=== PATIENT | male | born 1980 | race Caucasian/White ===

== ENCOUNTER 2019-09-23 14:03 | Emergency (ER) | payer BC ==
[2019-09-23] MEDS ORDERED: diphenhydrAMINE 50 MG/ML SDV IVPUSH ONE (14:34)
[2019-09-23] MEDS ORDERED: Sodium Chloride 0.9% 1,000 ML IV ONE (14:46)
[2019-09-23 14:49] VITALS: BP 139/94; PULSE 112
[2019-09-23] MEDS ORDERED: Iopamidol 755 Mg/ML 100 ML Bottle IVPUSH ONE (14:52)
--- NOTE | 2019-09-23 14:57 | EDM.PDOC ---
<Mercedez Medellin - Last Filed: 09/23/19 16:23> ED HPI GENERAL MEDICAL PROBLEM - General Chief Complaint: Allergic Reaction Stated Complaint: SOB/VOMITING Time Seen by Provider: 09/23/19 14:13 Source of Information: Reports: Patient History Limitations: Reports: No Limitations - History of Present Illness INITIAL COMMENTS - FREE TEXT/NARRATIVE: 39 year old white male who presents to the ED with complaints of shortness of breath. Pt was receiving outpatient IV chemotherapy treatment, oxaliplatin, at [facility] when he developed sudden onset of chest tightness and shortness of breath. 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 They stopped the infusion and gave the patient 100mg of Solucortef and 20mg IV pepcid and then sent the patient to the ED. The patient reports that he did vomit in the parking lot before coming into the ED. States that he is still short of breath, and only feels about 50% better. The patient states that this was his third round of chemo therapy, however he did have 12 rounds of treatment in 2014. Pt is a 1/2 pack per day smoker and has been on and off for about 15 years. - Related Data Allergies Allergy/AdvReac Type Severity Reaction Status Date / Time No Known Allergies Allergy Verified 09/23/19 14:18 Home Meds: Home Meds predniSONE [Prednisone] 50 mg PO DAILY #5 tablet 09/23/19 [Rx] Past Medical History Oncologic (Cancer) History: Reports: Colon - Past Surgical History GI Surgical History: Reports: Other (See Below) Other GI Surgeries/Procedures: colon resection Social & Family History - Family History Neurological: Reports: Alzheimers Disease Endocrine/Metabolic: Reports: Diabetes, type II Oncologic: Reports: Lung, Other (See Below) Other Oncologic Family History: throat - Tobacco Use Smoking Status *Q: Current Every Day Smoker Years of Tobacco use: 15 Packs/Tins Daily: 0.8 - Caffeine Use Caffeine Use: Reports: Coffee, Soda - Recreational Drug Use Recreational Drug Use: No ED ROS ALLERGIC REACTION - Review of Systems Review Of Systems: See Below Constitutional: Reports: No Symptoms HEENT: Reports: No Symptoms Respiratory: Reports: Shortness of Breath, Cough. Denies: Wheezing, Pleuritic Chest Pain, Sputum Cardiovascular: Reports: No Symptoms Endocrine: Reports: No Symptoms GI/Abdominal: Reports: No Symptoms : Reports: No Symptoms Musculoskeletal: Reports: No Symptoms Skin: Reports: No Symptoms. Denies: Pruritis, Rash, Urticaria Neurological: Reports: No Symptoms Psychiatric: Reports: No Symptoms Hematologic/Lymphatic: Reports: No Symptoms Immunologic: Reports: No Symptoms ED EXAM GENERAL NO PERIP PULSE - Physical Exam Exam: See Below Exam Limited By: No Limitations General Appearance: Alert, WD/WN, No Apparent Distress Ears: Normal External Exam, Hearing Grossly Normal Nose: Normal Inspection, No Blood Throat/Mouth: Normal Inspection, Normal Lips, Normal Oropharynx, Normal Voice, No Airway Compromise, Other (no angioedema to lips or tongue.) Head: Atraumatic, Normocephalic Neck: Normal Inspection, Supple, Non-Tender, Full Range of Motion Respiratory/Chest: No Accessory Muscle Use, Chest Non-Tender, Crackles (fine inspiratory crackles to right posterior lower lobe.). No: Wheezing, Accessory Muscle Use, Retractions Cardiovascular: Normal Peripheral Pulses, Regular Rate, Rhythm, No Edema, No Murmur GI/Abdominal: Normal Bowel Sounds, Soft, Non-Tender (Male) Exam: Deferred Rectal (Males) Exam: Deferred Back Exam: Normal Inspection, Full Range of Motion Extremities: Normal Inspection, Normal Range of Motion, No Pedal Edema, Normal Capillary Refill Neurological: Alert, Oriented, Normal Cognition, No Motor/Sensory Deficits Psychiatric: Normal Affect, Normal Mood Skin Exam: Warm, Dry, Intact, Normal Color, No Rash. No: Cyanosis, Rash Lymphatic: No Adenopathy EKG INTERPRETATION EKG Date: 09/23/19 Time: 15:39 Rhythm: Other (sinus tachycardia) Rate (Beats/Min): 122 P-Wave: Present QRS: Normal ST-T: Normal QT: Normal Comparison: NA - No Prior EKG EKG Interpretation Comments: T wave flattening AVL-non specific otherwise normal EKG Course - Vital Signs Last Recorded V/S: Last Vital Signs Temp 97.8 F 09/23/19 14:14 Pulse 112 H 09/23/19 14:14 Resp 20 09/23/19 14:14 BP 139/94 H 09/23/19 14:14 Pulse Ox 98 09/23/19 14:14 - Orders/Labs/Meds Orders: Active Orders 24 hr Category Date Time Status EKG 12 Lead [EKG Documentation Completion] [RC] STAT Care 09/23/19 14:42 Active CULTURE BLOOD [BC] Stat Lab 09/23/19 15:17 Received CULTURE BLOOD [BC] Stat Lab 09/23/19 15:17 Received Sodium Chloride 0.9% [Normal Saline] 100 ml Med 09/23/19 15:00 Active IV ASDIRECTED Sodium Chloride 0.9% [Saline Flush] Med 09/23/19 14:52 Active 10 ml FLUSH ONETIME PRN Blood Culture x2 Reflex Set [OM.PC] Stat Oth 09/23/19 15:41 Ordered Medication Orders Sodium Chloride (Normal Saline) 100 mls @ 75 mls/hr IV ASDIRECTED RUBIO Last Admin: 09/23/19 15:31 Dose: 75 mls/hr Sodium Chloride (Saline Flush) 10 ml FLUSH ONETIME PRN PRN Reason: IV FLUSH Last Admin: 09/23/19 15:30 Dose: 10 ml Admin: 09/23/19 15:08 Dose: 10 ml Labs: Laboratory Tests 09/23/19 09/23/19 09/23/19 Range/Units 14:50 14:50 15:17 WBC 2.09 L* (4.23-9.07) K/mm3 RBC 5.37 (4.63-6.08) M/mm3 Hgb 16.5 (13.7-17.5) gm/dl Hct 45.8 (40.1-51.0) % MCV 85.3 (79.0-92.2) fl MCH 30.7 (25.7-32.2) pg MCHC 36.0 H (32.2-35.5) g/dl RDW Std Deviation 48.5 H (35.1-43.9) fL Plt Count 44 L (163-337) K/mm3 MPV 10.5 (9.4-12.3) fl Neutrophils % (Manual) 83 H (40-60) % Band Neutrophils % 0 (0-10) % Lymphocytes % (Manual) 6 L (20-40) % Atypical Lymphs % 0 % Monocytes % (Manual) 11 H (2-10) % Eosinophils % (Manual) 0 L (0.8-7.0) % Basophils % (Manual) 0 L (0.2-1.2) Platelet Estimate Decreased Plt Morphology Comment Polychromasia 1+ slight Anisocytosis 1+ slight Macrocytosis 1+ slight RBC Morph Comment Not Reportable PT 12.5 H (9.7-12.0) SECONDS INR 1.16 APTT 25 (22-31) SECONDS Lactic Acid (0.4-2.1) mmol/L Troponin I < 0.017 (0.00-0.056) ng/mL 09/23/19 Range/Units 15:17 WBC (4.23-9.07) K/mm3 RBC (4.63-6.08) M/mm3 Hgb (13.7-17.5) gm/dl Hct (40.1-51.0) % MCV (79.0-92.2) fl MCH (25.7-32.2) pg MCHC (32.2-35.5) g/dl RDW Std Deviation (35.1-43.9) fL Plt Count (163-337) K/mm3 MPV (9.4-12.3) fl Neutrophils % (Manual) (40-60) % Band Neutrophils % (0-10) % Lymphocytes % (Manual) (20-40) % Atypical Lymphs % % Monocytes % (Manual) (2-10) % Eosinophils % (Manual) (0.8-7.0) % Basophils % (Manual) (0.2-1.2) Platelet Estimate Plt Morphology Comment Polychromasia Anisocytosis Macrocytosis RBC Morph Comment PT (9.7-12.0) SECONDS INR APTT (22-31) SECONDS Lactic Acid 2.1 (0.4-2.1) mmol/L Troponin I (0.00-0.056) ng/mL Meds: Medications Generic Name Dose Route Start Last Admin Trade Name Freq PRN Reason Stop Dose Admin Sodium Chloride 100 mls @ 75 mls/hr 09/23/19 15:00 09/23/19 15:31 Normal Saline IV 75 mls/hr ASDIRECTED RUBIO Administration Sodium Chloride 10 ml 09/23/19 14:52 09/23/19 15:30 Saline Flush FLUSH 10 ml ONETIME PRN Administration IV FLUSH Discontinued Medications Generic Name Dose Route Start Last Admin Trade Name Freq PRN Reason Stop Dose Admin Diphenhydramine HCl 25 mg 09/23/19 14:34 09/23/19 15:07 Benadryl IVPUSH 09/23/19 14:35 25 mg ONETIME ONE Administration Sodium Chloride 1,000 mls @ 999 mls/hr 09/23/19 14:46 09/23/19 15:09 Normal Saline IV 09/23/19 15:46 999 mls/hr ONETIME ONE Administration Iopamidol 100 ml 09/23/19 14:52 09/23/19 15:30 [id number] (76%) IVPUSH 09/23/19 14:53 100 ml ONETIME ONE Administration - Re-Assessments/Exams Free Text/Narrative Re-Assessment/Exam: 09/23/19 14:57 I have ordered a CBC, Troponin, EKG, and a CTA of the chest on this patient. I also ordered a liter of NS and 25mg of Benadryl IV. Free Text/Narrative Re-Assessment/Exam: 09/23/19 15:44 Pt reports recent dental procedure performed and he was placed on amoxicillin for this but he did not complete the course of antibiotics because he said it made him feel like he was getting a cold. 09/23/19 15:57 Lab called to notify us that the patient has a WBC of 2.09 and PLT count of 44. Pt's previous WBC was 3.9 and PLT count was 152 performed this morning prior to chemo. We have ordered Blood cultures, lactic acid, PT/INR, and PTT. Departure - Departure Disposition: Home, Self-Care 01 Clinical Impression: Medication reaction Qualifiers: Encounter type: initial encounter Qualified Code(s): T50.905A - Adverse effect of unspecified drugs, medicaments and biological substances, initial encounter - Discharge Information Prescriptions: predniSONE [Prednisone] 50 mg PO DAILY #5 tablet Referrals: PCP,None [Primary Care Provider] - Forms: ED Department Discharge Additional Instructions: Home, rest, return as needed for worsening condition - My Orders Last 24 Hours: My Active Orders 09/23/19 14:52 Sodium Chloride 0.9% [Saline Flush] 10 ml FLUSH ONETIME PRN 09/23/19 15:00 Sodium Chloride 0.9% [Normal Saline] 100 ml IV ASDIRECTED 09/23/19 15:17 CULTURE BLOOD [BC] Stat CULTURE BLOOD [BC] Stat 09/23/19 15:41 Blood Culture x2 Reflex Set [OM.PC] Stat - Assessment/Plan Last 24 Hours: My Active Orders 09/23/19 14:52 Sodium Chloride 0.9% [Saline Flush] 10 ml FLUSH ONETIME PRN 09/23/19 15:00 Sodium Chloride 0.9% [Normal Saline] 100 ml IV ASDIRECTED 09/23/19 15:17 CULTURE BLOOD [BC] Stat CULTURE BLOOD [BC] Stat 09/23/19 15:41 Blood Culture x2 Reflex Set [OM.PC] Stat <Daniel Chatterjee - Last Filed: 09/23/19 17:37> Course - Radiology Interpretation Free Text/Narrative:: CT chest shows no pulmonary embolus, no acute process - Re-Assessments/Exams Free Text/Narrative Re-Assessment/Exam: 09/23/19 17:33 Discussed case with who agrees with plan of care Will discharge patient on a course of steroids and have patient return for any worsening condition Departure - Departure Time of Disposition: 17:34 - Discharge Information *PRESCRIPTION DRUG MONITORING PROGRAM REVIEWED*: No *COPY OF PRESCRIPTION DRUG MONITORING REPORT IN PATIENT WEI: No
[2019-09-23] MEDS ORDERED: Sodium Chloride 0.9% 100 ML IV SCH (15:00)
[2019-09-23] MEDS: Sodium Chloride 0.9% 10 ML Syringe FLUSH PRN ×2 (15:08→15:30)
--- NOTE | 2019-09-23 16:08 | CT ---
CT chest Technique: Multiple axial sections through the chest were obtained. Intravenous contrast was utilized. Study has been performed as a pulmonary angiogram protocol. Comparison: No prior chest imaging. Findings: Normal phasic flow, augmentation and compression is seen. Mediastinum and hilar region show no adenopathy. No pericardial thickening is seen. Small portion of the visualized upper abdominal structures appear without discrete abnormality. Lungs are clear with no acute parenchymal change. No pleural effusions or pneumothorax is seen. No discrete rib abnormality is appreciated. Thoracic spine shows minimal spurring within the upper and mid levels which is incidental. Impression: 1. No findings of pulmonary embolism. 2. Nothing acute is seen on CT study of the chest. Diagnostic code #1
== END 2019-09-23 17:57 | disposition home or self-care (01) ==
LOC: JD.ED 14:03
DX: R07.89 Other chest pain (principal); T45.1X5A Adverse effect of antineoplastic and immunosuppressive drugs, initial encounter; F17.210 Nicotine dependence, cigarettes, uncomplicated; Z79.899 Other long term (current) drug therapy
CPT/HCPCS: 36415; 71275; 83605; 84484; 85007; 85027; 85610; 85730; 87040; 93005; 96361; 96374; 99285; J1200; J1642; J7030; J7040; Q9967; 93010; 99284